=== PATIENT | male | born 1960 | race Caucasian/White ===

== ENCOUNTER 2016-05-07 10:22 | Inpatient (IN) | payer OTHER ==
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
--- NOTE | ~2016-05-07 | DS ---
Discharge Summary [facility] [address] [place]. [address] NAME: EMY SCOTT : 56 STATUS : ADM IN [facility]#: [id number] AGE: 56 ADM/REG DATE : 05/07/16 MR#: [id number] REPORT SERV DATE: 05/12/16 DICTATED BY: SLIME PUGH DATE: 05/12/16 REPORT STATUS : Draft TRANSCRIBED BY: MODL DATE: 05/12/16 ADMISSION DATE: 05/07/2016 DISCHARGE DATE: 05/12/2016 FINAL HOSPITAL DIAGNOSES: 1. Volume overload, anasarca, edema, felt secondary to probable liver disease secondary to history of EtOH. 2. Spontaneous bacterial peritonitis. 3. Diabetes. 4. History of hypertension. CONSULTATIONS: None. PROCEDURES: 1. CT scan of the abdomen and pelvis done on 05/07/2016 showing ascites, diffuse edema within subcutaneous and intraabdominal fat, slight splenomegaly, possible varices in the left abdomen, minimal nonobstructing areas of calcification within the kidneys without evidence of hydronephrosis, minimal partially nodule in the right lower lobe, minimal bibasilar dependent atelectasis. 2. Paracentesis done on 05/08/2016 with approximately 2200 mL removed. CURRENT PHYSICAL FINDINGS AND HPI: Please see dictated H and P by Dr. Gould. In brief, the patient is a 56-year-old male with above history, was told to discontinue his diuretic by his PCP, and presented with increasing dependent edema, abdominal girth, and abdominal pain. Vital signs at the time of admission, blood pressure was 154/79. His temperature was 98.1 and he has had no documented temperature here, heart rate was 94. LAB WORK: His initial BMP was unremarkable. With his diuretics, he has had some slight hypokalemia, which has been replaced. Magnesium has not been an issue, he has been approximately 2+. Even with his diuresis, his liver functions were slightly abnormal. He had a presenting bilirubin of 2.3 total, reached to a max of 5.1 on 05/09/2016, but repeat later that day was 3.1. AST, ALTs have been in the 60 and 40 range. Alkaline phosphatase averaging approximately 130. Lipase was normal. Troponin was normal. BMP was normal. A1c was 5.2. Hepatitis profile is currently pending. Peritoneal fluid noted a negative culture x3 days, however, his nucleated cell count was 1302 with 20% segments. White count was 9.9 on presentation, highest white count was 11.3 on 05/09/2016. He was not anemic. Hemoglobins were approximately 14 and 40, platelet counts were averaging approximately 150. INR was 1.8. The patient was initially admitted for volume overload edema and he was initially started on diuretic drip, Bumex at 1 mg an hour. Paracentesis was ordered and sent for the above studies. His home medications reviewed and restarted appropriately, he was placed on sliding scale insulin, and serial labs were followed. I took over his care on 05/09/2016. He was having abdominal pain and the results of his paracentesis were back, he was above 250 cut off, for concern of SBP. He was started on Rocephin at that time pending culture results. He had a 12 L fluid loss on the diuretic, so the drip was discontinued, and the following day, he was placed on p.o. diuretics initially at 60 b.i.d. titrating to q. day dose. He continued to lose fluid and symptoms were much improved as far as his Discharge Summary [address] [address] NAME: EMY SCOTT : 56 STATUS : ADM IN PAT#: [id number] AGE: 56 ADM/REG DATE : 05/07/16 MR#: [id number] REPORT SERV DATE: 05/12/16 DICTATED BY: SLIME PUGH DATE: 05/12/16 REPORT STATUS : Draft TRANSCRIBED BY: MOD DATE: 05/12/16 anasarca and abdominal pain. On discussion with Dr. Morin, he was agreeable to see the patient in outpatient followup, recommended continued outpatient treatment for SBP, both acute and prophylaxis, and this was explained to the patient. He was also started on Aldactone. A hepatitis panel was ordered, which is currently pending. He was reassessed after day 4 of his IV Rocephin and remained afebrile with no abdominal pain, continued good diuresis, acceptable electrolytes, and felt stable for discharge. DISPOSITION: As follows. He is discharged home. We will schedule an outpatient appointment with Dr. Morin. We wrote him the following prescriptions. Aldactone 100 one per day, Levaquin 750 one per day for fourteen days, and Cipro 500 three times per week. 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 We will also continue Lasix 40 one per day as he was at home; however, he will weigh daily and if he increases by several pounds, he will increase his Lasix dose to try to maintain later slowly decreasing weight. He will continue his Ambien 10, his Glucophage 500, his Ventolin inhaler, and his potassium 20. He was not restarted on his Cozaar here and he will continue to hold as his blood pressure seems improved with the diuresis. I have asked him to follow up with his PCP in seven to ten days to check his volume status and weight, his blood pressure off his Cozaar, follow up on his hepatitis panel, recheck his renal function and electrolytes, particularly his potassium since he will be on Aldactone plus potassium-losing diuretic and p.o. potassium replacement, but he is off his ARB. He has been given instructions to return to the hospital for recurrence of his abdominal pain, fever, or other symptoms of infection, he voices understanding. SAIDA/CLAU Slime Pugh M.D. / [id number] CC: Slime Pugh M.D.
[2016-05-07 09:05] LABS: BASOPHILS 1.1 %; BASOPHILS ABSOLUTE 0.11 10/3/uL (0.0-0.16); EOSINOPHILS 2.6 %; EOSINOPHILS ABSOLUTE 0.26 10/3/uL (0.0-0.53); HEMATOCRIT 40.4 % (40.0-51.0); HEMOGLOBIN 14.1 g/dL (13.6-17.8); IMMATURE GRANULOCYTES 0.6 %; IMMATURE GRANULOCYTES ABSOLUTE 0.06 10/3/uL (0.0-0.11); LYMPHOCYTES 10.5 %; LYMPHOCYTES ABSOLUTE 1.04 10/3/uL (0.67-4.30); MANUAL DIFF NO %; MEAN CORPUS HGB CONC 34.9 g/dL (32.0-36.0); MEAN CORPUSCULAR VOLUME 108.9 fL (80-100); MEAN PLATELET VOLUME 10.3 fL (9.2-13.0); MONOCYTES 23.8 %; MONOCYTES ABSOLUTE 2.35 10/3/uL (0.21-1.20); NEUTROPHILS 61.4 %; NEUTROPHILS ABSOLUTE 6.06 10/3/uL (2.02-8.40); PLATELET COUNT 149 10/3/uL (150-400); RBC DISTRIBUTION WIDTH 13.8 % (12.0-16.0); RED CELL COUNT 3.71 10/6/uL (4.7-6.1); WHITE BLOOD CELLS 9.9 10/3/uL (4.5-10.5)
[2016-05-07 09:12] LABS: INTERNATIONAL NORMAL RATI 1.8 UNITS (-)
[2016-05-07 09:13] LABS: PARTIAL THROMBO TIME 47.4 SEC (22.5-37.2)
[2016-05-07 09:22] LABS: ALKALINE PHOSPHATASE 127 U/L (45-117); BUN (BLOOD UREA NITROGEN) 4 MG/DL (6-23); CALCIUM, SERUM 7.7 MG/DL (8.5-10.4); CHEST PAIN PROFILE TAT 0 Hrs 21 Mins; CHLORIDE, SERUM 104 MMOL/L (96-112); CO2 (CARBON DIOXIDE) 29 MMOL/L (24-34); DIRECT BILIRUBIN 1.3 MG/DL (0.0-0.4); GFR AFRICAN AMERICAN 121 ML/MIN (>=60); GFR NON AFRICAN AMERICAN 104 ML/MIN (>=60); POTASSIUM, SERUM 4.2 MMOL/L (3.5-5.3); SGOT(AST) 61 U/L (5-40); SGPT(ALT) 41 U/L (5-65); SODIUM, SERUM 141 MMOL/L (135-148); TROPONIN I <0.02 NG/ML (<0.05)
[2016-05-07 09:24] LABS: ALBUMIN 2.2 G/DL (3.5-5.0); GLUCOSE, SERUM 176 MG/DL (60-99); TOTAL BILIRUBIN 2.3 MG/DL (0-1.2); TOTAL PROTEIN 6.6 G/DL (6.0-8.5)
[2016-05-07 09:25] LABS: BAND NEUTROPHILS 5 %; BASOPHILS 1 %; EOSINOPHILS 5 %; ER DIFF TAT 0 Hrs 24 Mins; LYMPHOCYTES 11 %; LYMPHOCYTES ABSOLUTE (CALC) 1.09 10/3/uL (0.67-4.30); METAMYELOCYTES 1 %; MONOCYTES 13 %; MONOCYTES ABSOLUTE (CALC) 1.29 10/3/uL (0.21-1.20); NEUTROPHILS ABSOLUTE (CALC) 6.83 10/3/uL (2.02-8.40); PLATELET ESTIMATE SLT DEC (ADEQUATE); RBC MORPHOLOGY NORM (NORMAL); SEGMENTED NEUTROPHIL (0) 64 %; TOTAL NUCLEATED CELLS 100
[2016-05-07] MEDS ORDERED: AMB10 PO (13:34)
[2016-05-07] MEDS ORDERED: VENTOLIN HFA INH (13:35)
[2016-05-07] MEDS ORDERED: GLUCPH PO (13:35)
[2016-05-07] MEDS ORDERED: COZ25 PO (13:35)
[2016-05-07] MEDS ORDERED: L40 PO (13:36)
[2016-05-07] MEDS ORDERED: KLOR-CON M2020 MEQ PO (13:36)
[2016-05-08 04:17] LABS: HEMATOCRIT 41.4 % (40.0-51.0); HEMOGLOBIN 14.6 g/dL (13.6-17.8); MANUAL DIFF YES %; MEAN CORPUS HGB CONC 35.3 g/dL (32.0-36.0); MEAN CORPUSCULAR HEMOGLOB 38.3 pg (26.0-34.0); MEAN CORPUSCULAR VOLUME 108.7 fL (80-100); MEAN PLATELET VOLUME 10.5 fL (9.2-13.0); PLATELET COUNT 152 10/3/uL (150-400); RBC DISTRIBUTION WIDTH 13.8 % (12.0-16.0); RED CELL COUNT 3.81 10/6/uL (4.7-6.1); WHITE BLOOD CELLS 10.7 10/3/uL (4.5-10.5)
[2016-05-08 04:18] LABS: INTERNATIONAL NORMAL RATI 1.8 UNITS (-); PROTIME (NOT ORD) 21.1 SEC (12.0-14.5)
[2016-05-08 04:26] LABS: A/G RATIO 0.5 (0.7-1.9); ALBUMIN 2.3 G/DL (3.5-5.0); ALKALINE PHOSPHATASE 127 U/L (45-117); BUN (BLOOD UREA NITROGEN) 6 MG/DL (6-23); CALCIUM, SERUM 7.7 MG/DL (8.5-10.4); CHLORIDE, SERUM 100 MMOL/L (96-112); CO2 (CARBON DIOXIDE) 31 MMOL/L (24-34); CREATININE 0.73 MG/DL (0.70-1.30); GFR AFRICAN AMERICAN 119 ML/MIN (>=60); GFR NON AFRICAN AMERICAN 102 ML/MIN (>=60); GLOBULIN 4.5 G/DL (2.5-4.1); POTASSIUM, SERUM 3.6 MMOL/L (3.5-5.3); SGOT(AST) 72 U/L (5-40); SGPT(ALT) 44 U/L (5-65); SODIUM, SERUM 141 MMOL/L (135-148); TOTAL PROTEIN 6.8 G/DL (6.0-8.5)
[2016-05-08 04:28] LABS: GLUCOSE, SERUM 115 MG/DL (60-99); TOTAL BILIRUBIN 4.3 MG/DL (0-1.2)
[2016-05-08 04:39] LABS: EOSINOPHILS 1 %; EOSINOPHILS ABSOLUTE (CALC) 0.11 10/3/uL (0.0-0.53); LYMPHOCYTES 10 %; LYMPHOCYTES ABSOLUTE (CALC) 1.07 10/3/uL (0.67-4.30); MONOCYTES 15 %; MONOCYTES ABSOLUTE (CALC) 1.61 10/3/uL (0.21-1.20); NEUTROPHILS ABSOLUTE (CALC) 7.92 10/3/uL (2.02-8.40); PLATELET ESTIMATE ADQ (ADEQUATE); RBC MORPHOLOGY ABN (NORMAL); SEGMENTED NEUTROPHIL (0) 74 %; TOTAL NUCLEATED CELLS 100
[2016-05-08 15:50] LABS: BF ALBUMIN 0.6 G/DL; LDH BODY FLUID (NOT ORD) 65 U/L; PROTEIN BODY FLUID 1.3 G/DL
[2016-05-08 16:21] LABS: BD FL LYMPH (NOT ORD) 10 %; BD FL SOURCE (NOT ORD) PARACENTESIS; BF BASO (NOT OF) 1 %; BF LARGE MONONUCLEAR 68 %; BODY FLUID EOS (NOT ORD) 0 %; BODY FLUID SEG (NOT ORD) 21 %
[2016-05-08 16:27] LABS: BF TOTAL CELL CT (NOT ORD 1302 /MM3; BODY FLUID RBC (NOT ORD) < 10 /MM3
[2016-05-09 06:23] LABS: BASOPHILS 0.4 %; BASOPHILS ABSOLUTE 0.05 10/3/uL (0.0-0.16); EOSINOPHILS 1.4 %; EOSINOPHILS ABSOLUTE 0.16 10/3/uL (0.0-0.53); HEMATOCRIT 40.4 % (40.0-51.0); HEMOGLOBIN 14.2 g/dL (13.6-17.8); IMMATURE GRANULOCYTES 0.3 %; IMMATURE GRANULOCYTES ABSOLUTE 0.03 10/3/uL (0.0-0.11); LYMPHOCYTES 12.6 %; LYMPHOCYTES ABSOLUTE 1.43 10/3/uL (0.67-4.30); MEAN CORPUS HGB CONC 35.1 g/dL (32.0-36.0); MEAN CORPUSCULAR HEMOGLOB 37.7 pg (26.0-34.0); MEAN CORPUSCULAR VOLUME 107.2 fL (80-100); MEAN PLATELET VOLUME 10.5 fL (9.2-13.0); MONOCYTES 19.9 %; MONOCYTES ABSOLUTE 2.26 10/3/uL (0.21-1.20); NEUTROPHILS 65.4 %; PLATELET COUNT 156 10/3/uL (150-400); RBC DISTRIBUTION WIDTH 13.7 % (12.0-16.0); RED CELL COUNT 3.77 10/6/uL (4.7-6.1); WHITE BLOOD CELLS 11.3 10/3/uL (4.5-10.5)
[2016-05-09 06:26] LABS: MANUAL DIFF NO %
[2016-05-09 06:41] LABS: A/G RATIO 0.5 (0.7-1.9); ALBUMIN 2.1 G/DL (3.5-5.0); ALKALINE PHOSPHATASE 118 U/L (45-117); BUN (BLOOD UREA NITROGEN) 9 MG/DL (6-23); CALCIUM, SERUM 7.3 MG/DL (8.5-10.4); CHLORIDE, SERUM 93 MMOL/L (96-112); CO2 (CARBON DIOXIDE) 35 MMOL/L (24-34); CREATININE 0.69 MG/DL (0.70-1.30); GFR AFRICAN AMERICAN 121 ML/MIN (>=60); GFR NON AFRICAN AMERICAN 105 ML/MIN (>=60); GLOBULIN 4.3 G/DL (2.5-4.1); GLUCOSE, SERUM 104 MG/DL (60-99); POTASSIUM, SERUM 2.7 MMOL/L (3.5-5.3); SGOT(AST) 61 U/L (5-40); SGPT(ALT) 41 U/L (5-65); SODIUM, SERUM 138 MMOL/L (135-148); TOTAL BILIRUBIN 5.1 MG/DL (0-1.2); TOTAL PROTEIN 6.4 G/DL (6.0-8.5)
[2016-05-09 18:55] LABS: A/G RATIO 0.5 (0.7-1.9); ALBUMIN 2.3 G/DL (3.5-5.0); ALKALINE PHOSPHATASE 122 U/L (45-117); BUN (BLOOD UREA NITROGEN) 9 MG/DL (6-23); CALCIUM, SERUM 7.4 MG/DL (8.5-10.4); CHLORIDE, SERUM 95 MMOL/L (96-112); CO2 (CARBON DIOXIDE) 35 MMOL/L (24-34); CREATININE 0.89 MG/DL (0.70-1.30); GFR AFRICAN AMERICAN 109 ML/MIN (>=60); GFR NON AFRICAN AMERICAN 94 ML/MIN (>=60); GLOBULIN 4.6 G/DL (2.5-4.1); POTASSIUM, SERUM 3.1 MMOL/L (3.5-5.3); SGOT(AST) 65 U/L (5-40); SGPT(ALT) 41 U/L (5-65); SODIUM, SERUM 137 MMOL/L (135-148); TOTAL PROTEIN 6.9 G/DL (6.0-8.5)
[2016-05-09 18:56] LABS: GLUCOSE, SERUM 184 MG/DL (60-99); TOTAL BILIRUBIN 3.1 MG/DL (0-1.2)
[2016-05-10 06:18] LABS: BUN (BLOOD UREA NITROGEN) 9 MG/DL (6-23); CHLORIDE, SERUM 97 MMOL/L (96-112); CREATININE 0.65 MG/DL (0.70-1.30); GFR AFRICAN AMERICAN 124 ML/MIN (>=60); GFR NON AFRICAN AMERICAN 107 ML/MIN (>=60); PHOSPHORUS, SERUM 2.5 MG/DL (2.5-4.5); POTASSIUM, SERUM 3.2 MMOL/L (3.5-5.3); SODIUM, SERUM 138 MMOL/L (135-148)
[2016-05-10 06:19] LABS: CO2 (CARBON DIOXIDE) 29 MMOL/L (24-34); GLUCOSE, SERUM 100 MG/DL (60-99)
[2016-05-11 06:06] LABS: CALCIUM IONIZED 4.29 MG/DL (3.80-4.80)
[2016-05-11 06:20] LABS: BUN (BLOOD UREA NITROGEN) 8 MG/DL (6-23); CALCIUM, SERUM 7.8 MG/DL (8.5-10.4); CHLORIDE, SERUM 102 MMOL/L (96-112); CO2 (CARBON DIOXIDE) 30 MMOL/L (24-34); CREATININE 0.67 MG/DL (0.70-1.30); GFR AFRICAN AMERICAN 123 ML/MIN (>=60); GFR NON AFRICAN AMERICAN 106 ML/MIN (>=60); POTASSIUM, SERUM 3.4 MMOL/L (3.5-5.3); SODIUM, SERUM 139 MMOL/L (135-148)
[2016-05-11 06:22] LABS: GLUCOSE, SERUM 132 MG/DL (60-99)
[2016-05-11 06:24] LABS: B NATRIURETIC PEPTIDE (BNP) 16.8 PG/ML (< 100.0)
[2016-05-12 08:32] LABS: BUN (BLOOD UREA NITROGEN) 9 MG/DL (6-23); CHLORIDE, SERUM 103 MMOL/L (96-112); CO2 (CARBON DIOXIDE) 29 MMOL/L (24-34); GFR AFRICAN AMERICAN 121 ML/MIN (>=60); GFR NON AFRICAN AMERICAN 104 ML/MIN (>=60); GLUCOSE, SERUM 110 MG/DL (60-99); POTASSIUM, SERUM 3.4 MMOL/L (3.5-5.3); SODIUM, SERUM 139 MMOL/L (135-148)
[2016-05-12 10:14] LABS: HEPATITIS B SURFACE ANTIGEN NON-REACTIVE (NON-REACT)
[2016-05-12 10:24] LABS: HEPATITIS B CORE AB IGM NON-REACTIVE (NON-REAC)
[2016-05-12 10:25] LABS: HEP A ANTIBODY IGM NON-REACTIVE (NON-REACT)
[2016-05-12] MEDS ORDERED: LEVAQUIN750 MG PO (12:27)
[2016-05-12] MEDS ORDERED: CIP5 PO (12:30)
[2016-05-12] MEDS ORDERED: SPIR100 PO (12:31)
[2016-05-12 13:19] LABS: HEPATITIS C ANTIBODY REACTIVE (NON-REACT)
[2016-07-12] MEDS ORDERED: L40 PO (16:37)
[2016-11-06] MEDS ORDERED: VENTOLIN HFA INH (12:04)
[2016-11-06] MEDS ORDERED: GENERLAC PO (12:04)
[2016-11-06] MEDS ORDERED: SPIR100 PO (12:05)
[2016-11-06] MEDS ORDERED: L80 PO (12:05)
[2016-11-06] MEDS ORDERED: L40 PO (12:05)
[2016-11-06] MEDS ORDERED: I20 PO (12:05)
[2016-11-06] MEDS ORDERED: AT25 PO (12:06)
[2016-11-06] MEDS ORDERED: LINZESS 145 M145 MCG PO (12:06)
[2016-11-06] MEDS ORDERED: [UNRECOGNIZED DRUG - CODE] PO (12:11)
== END 2016-05-12 13:13 | disposition home or self-care (01) | DRG 373 ==
LOC: ER 10:22 → 4SO 15:06
PROVIDERS: Internal Medicine; Nurse Practitioner; Nurse Practitioner Gerontology
PROC: 0W9G3ZX Drainage of Peritoneal Cavity, Percutaneous Approach, Diagnostic (ICD-10-PCS; principal; 2016-05-08)
DX: K65.2 Spontaneous bacterial peritonitis (principal); K70.31 Alcoholic cirrhosis of liver with ascites; I10 Essential (primary) hypertension; E11.9 Type 2 diabetes mellitus without complications; Z85.828 Personal history of other malignant neoplasm of skin; Z92.3 Personal history of irradiation; F17.210 Nicotine dependence, cigarettes, uncomplicated; Z79.84 Long term (current) use of oral hypoglycemic drugs; E87.6 Hypokalemia
CPT/HCPCS: 49083; 71010; 74176; 80048; 80053; 80074; 80076; 82042; 82330; 82962; 83036; 83615; 83690; 83735; 83880; 84100; 84132; 84157; 84484; 85025; 85610; 85730; 87070; 87205; 89051; 93005; 96374; 99285; A9270-GY; J1170; J2405

== ENCOUNTER → 2016-07-02 22:27 | Emergency (ER) | payer OTHER ==
[~2016-07-02 22:27] MED LIST: AMB10 PO; AT25 PO; CIP5 PO; CONSTULOSE PO; COZ25 PO; GENERLAC PO; GLUCPH PO; HABIT21 TOP; I20 PO; KDUR20 PO; KLOR-CON M2020 MEQ PO; L40 PO; L80 PO; LEVAQUIN750 MG PO; LINZESS 145 M145 MCG PO; PEP20 PO; SPIR100 PO; SPRYCEL100 MG PO; VENTOLIN HFA INH; [UNRECOGNIZED DRUG - CODE] PO
== END | disposition left against medical advice (07) ==
LOC: ER 22:27
DX: Z53.21 Procedure and treatment not carried out due to patient leaving prior to being seen by health care provider (principal)
CPT/HCPCS: 82962; 93005

== ENCOUNTER 2016-07-28 16:14 | Inpatient (IN) | payer OTHER ==
--- NOTE | ~2016-07-28 | DS ---
Discharge Summary [facility] [address] [place]. [address] NAME: EMY SCOTT : 56 STATUS : DIS IN PAT#: [id number] AGE: 56 ADM/REG DATE : 07/28/16 MR#: [id number] REPORT SERV DATE: 08/02/16 DICTATED BY: PAULO GONZALEZ DATE: 08/01/16 REPORT STATUS : Draft TRANSCRIBED BY: MODL DATE: 08/01/16 ADMISSION DATE: 07/28/2016 DISCHARGE DATE: 07/31/2016 DISCHARGE DIAGNOSES: 1. Hepatic encephalopathy. 2. 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 3. Diabetes type 2. 4. Hypertension. 5. Mild lactic elevation, resolved. 6. Tobacco use. DISCHARGE DISPOSITION: Home with family. Follow up with Dr. Morin in 2 weeks. Follow up PCP this week for followup pneumonia. PERTINENT LABS: Ammonia on arrival over 160 with high being over 180, at time of discharge 60. DISCHARGE MEDICATIONS: 1. Pepcid 20 mg one tab p.o. daily. 2. Lasix decreased to 40 mg one tab p.o. daily. 3. Lactulose 15 mL p.o. t.i.d. titrate to two to three bowel movements a day. 4. Nicotine topical patch daily. 5. Inderal 20 mg one tab p.o. b.i.d. 6. Spironolactone 50 mg one tab p.o. daily. 7. To reassess for rifaximin with Hepatology. 8. Atarax 25 mg one tab p.o. as needed for sleep home dose. 9. Ventolin 2 puffs inhalation daily. 10.KCl 10 mEq p.o. daily. The patient also to take daily labs, diabetic diet at home. Call PCP if greater than 3 pounds in a day or 5 pounds weight gain in a week. HOSPITAL COURSE: Please see H and P for complete details. HISTORY OF PRESENT ILLNESS: Briefly, Mr. Scott is a pleasant 56-year-old male with past medical history of alcohol and hep C component cirrhosis who presents after being at work and having feelings of mental slowing and mild confusion that has been slow but progressive. On arrival to emergency room, the patient was noted to have ammonia of 160 as high as 181 during this hospital stay. BNP was only 18.2 and hemoglobin A1c was 5.3. Brain without contrast was performed with no acute findings. CT abdomen and pelvis was also performed noted with cirrhosis edema but no ascites. Procalcitonin 0.07, free T4 and TSH within normal limits. Negative troponin enzymes. The patient was placed on lactulose and began to have continued bowel movements with subsequent decrease in ammonia. The patient had clinical improvement with mental status and within 24 hours was notably improved and by day of discharge, was feeling back to his baseline and felt safe and comfortable with discharge and was eager to return back to home. He understands plan for close followup. Discharge Summary [facility] [address] [facility] [place]. [address] NAME: EMY SCOTT : 56 STATUS : DIS IN PAT#: [id number] AGE: 56 ADM/REG DATE : 07/28/16 MR#: [id number] REPORT SERV DATE: 08/02/16 DICTATED BY: PAULO GONZALEZ DATE: 08/01/16 REPORT STATUS : Draft TRANSCRIBED BY: MODSonya DATE: 08/01/16 Education about disease process was reinforced as well as diabetic education. The patient was reported to be diabetic, has had almost 50 pounds weight loss with fluid loss with diuretics, however, was borderline. Systolic blood pressures in the low 100s so home dose of spironolactone and Lasix were decreased as patient was fairly euvolemic and due to bowel movements was being closely monitored with volume status. The patient felt comfortable and understood the purpose of bowel regimen and lactulose and medications and has good family support to monitor with him. All questions answered. Greater than 30 minutes spent with discharge planning, med reconciliation, and education. DICTATED BY: MD DANIEL Frost/CLAU Paulo Gonzalez MD / [id number] CC: Paulo Gonzalez MD
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
[2016-07-28 13:18] LABS: BASOPHILS 0.6 %; BASOPHILS ABSOLUTE 0.05 10/3/uL (0.0-0.16); EOSINOPHILS 1.8 %; EOSINOPHILS ABSOLUTE 0.15 10/3/uL (0.0-0.53); ER CBC TAT 0 Hrs 09 Mins; HEMATOCRIT 40.2 % (40.0-51.0); HEMOGLOBIN 14.6 g/dL (13.6-17.8); IMMATURE GRANULOCYTES 0.4 %; IMMATURE GRANULOCYTES ABSOLUTE 0.03 10/3/uL (0.0-0.11); LYMPHOCYTES 11.9 %; LYMPHOCYTES ABSOLUTE 1.02 10/3/uL (0.67-4.30); MANUAL DIFF NO %; MEAN CORPUS HGB CONC 36.3 g/dL (32.0-36.0); MEAN CORPUSCULAR HEMOGLOB 36.5 pg (26.0-34.0); MEAN CORPUSCULAR VOLUME 100.5 fL (80-100); MONOCYTES 16.7 %; MONOCYTES ABSOLUTE 1.43 10/3/uL (0.21-1.20); NEUTROPHILS 68.6 %; NEUTROPHILS ABSOLUTE 5.86 10/3/uL (2.02-8.40); PLATELET COUNT 149 10/3/uL (150-400); RBC DISTRIBUTION WIDTH 13.8 % (12.0-16.0); WHITE BLOOD CELLS 8.5 10/3/uL (4.5-10.5)
[2016-07-28 13:38] LABS: BUN (BLOOD UREA NITROGEN) 12 MG/DL (6-23); CHLORIDE, SERUM 100 MMOL/L (96-112); CO2 (CARBON DIOXIDE) 27 MMOL/L (24-34); CREATININE 1.16 MG/DL (0.70-1.30); GFR AFRICAN AMERICAN 80 ML/MIN (>=60); GFR NON AFRICAN AMERICAN 69 ML/MIN (>=60); POTASSIUM, SERUM 3.8 MMOL/L (3.5-5.3); SGOT(AST) 59 U/L (5-40); SGPT(ALT) 55 U/L (5-65); SODIUM, SERUM 134 MMOL/L (135-148); TOTAL PROTEIN 7.6 G/DL (6.0-8.5); TROPONIN I <0.02 NG/ML (<0.05)
[2016-07-28 13:39] LABS: A/G RATIO 0.7 (0.7-1.9); ALBUMIN 3.1 G/DL (3.5-5.0); ALKALINE PHOSPHATASE 101 U/L (45-117); CALCIUM, SERUM 9.1 MG/DL (8.5-10.4); GLOBULIN 4.5 G/DL (2.5-4.1); GLUCOSE, SERUM 144 MG/DL (60-99); TOTAL BILIRUBIN 4.6 MG/DL (0-1.2)
[2016-07-28 14:42] LABS: ASCORBIC ACID (UR NOT ORDER) NEG (NEG); BILIRUBIN, URINE NEGATIVE (NEG); ER URINALYSIS TAT 0 Hrs 08 Mins; KETONE, URINE NEGATIVE (NEG); LEUKOCYTE ESTERASE(NOT OR NEG (NEG); NITRITE (URINE) NEG (NEG); WBC (NOT ORDERED) (RFLEX) 1 (0-5)
[~2016-07-28 16:14] MED LIST changes: -AT25 PO; -CONSTULOSE PO; -GENERLAC PO; -HABIT21 TOP; -I20 PO; -KDUR20 PO; -L80 PO; -LINZESS 145 M145 MCG PO; -PEP20 PO; -SPRYCEL100 MG PO; -[UNRECOGNIZED DRUG - CODE] PO
[2016-07-28] MEDS ORDERED: SPRYCEL100 MG PO (16:40)
[2016-07-28] MEDS ORDERED: AT25 PO (16:40)
[2016-07-28] MEDS ORDERED: VENTOLIN HFA INH (16:40)
[2016-07-28] MEDS ORDERED: PEP20 PO (16:41)
[2016-07-28] MEDS ORDERED: L80 PO (16:41)
[2016-07-28] MEDS ORDERED: KDUR20 PO (16:41)
[2016-07-28] MEDS ORDERED: SPIR100 PO (16:44)
[2016-07-28 21:05] LABS: B NATRIURETIC PEPTIDE (BNP) 18.2 PG/ML (< 100.0)
[2016-07-28 21:09] LABS: FREE T4 1.37 NG/DL (0.76-1.46); TROPONIN I <0.02 NG/ML (<0.05)
[2016-07-28 22:07] LABS: GLYCOHEMOGLOBIN (HbA1c) 5.3 % (4.7-6.1)
[2016-07-28 22:13] LABS: PROCALCITONIN 0.07 ng/mL (<0.5)
[2016-07-29 04:46] LABS: BASOPHILS 1.1 %; BASOPHILS ABSOLUTE 0.09 10/3/uL (0.0-0.16); EOSINOPHILS 4.3 %; EOSINOPHILS ABSOLUTE 0.34 10/3/uL (0.0-0.53); HEMATOCRIT 35.9 % (40.0-51.0); HEMOGLOBIN 12.6 g/dL (13.6-17.8); IMMATURE GRANULOCYTES 0.4 %; IMMATURE GRANULOCYTES ABSOLUTE 0.03 10/3/uL (0.0-0.11); LYMPHOCYTES 23.2 %; LYMPHOCYTES ABSOLUTE 1.83 10/3/uL (0.67-4.30); MANUAL DIFF NO %; MEAN CORPUS HGB CONC 35.1 g/dL (32.0-36.0); MEAN CORPUSCULAR HEMOGLOB 35.4 pg (26.0-34.0); MEAN CORPUSCULAR VOLUME 100.8 fL (80-100); MEAN PLATELET VOLUME 11.4 fL (9.2-13.0); MONOCYTES 18.3 %; MONOCYTES ABSOLUTE 1.44 10/3/uL (0.21-1.20); NEUTROPHILS 52.7 %; NEUTROPHILS ABSOLUTE 4.16 10/3/uL (2.02-8.40); PLATELET COUNT 148 10/3/uL (150-400); RBC DISTRIBUTION WIDTH 14.1 % (12.0-16.0); RED CELL COUNT 3.56 10/6/uL (4.7-6.1); WHITE BLOOD CELLS 7.9 10/3/uL (4.5-10.5)
[2016-07-29 04:56] LABS: A/G RATIO 0.7 (0.7-1.9); ALBUMIN 2.5 G/DL (3.5-5.0); BUN (BLOOD UREA NITROGEN) 15 MG/DL (6-23); CALCIUM, SERUM 8.9 MG/DL (8.5-10.4); CHLORIDE, SERUM 105 MMOL/L (96-112); CO2 (CARBON DIOXIDE) 28 MMOL/L (24-34); CREATININE 0.95 MG/DL (0.70-1.30); GFR AFRICAN AMERICAN 102 ML/MIN (>=60); GFR NON AFRICAN AMERICAN 88 ML/MIN (>=60); GLOBULIN 3.8 G/DL (2.5-4.1); POTASSIUM, SERUM 3.4 MMOL/L (3.5-5.3); SGOT(AST) 42 U/L (5-40); SGPT(ALT) 39 U/L (5-65); SODIUM, SERUM 139 MMOL/L (135-148); TOTAL PROTEIN 6.3 G/DL (6.0-8.5); TROPONIN I <0.02 NG/ML (<0.05)
[2016-07-29 05:00] LABS: ALKALINE PHOSPHATASE 81 U/L (45-117); GLUCOSE, SERUM 92 MG/DL (60-99); TOTAL BILIRUBIN 3.7 MG/DL (0-1.2)
[2016-07-30 06:25] LABS: HEMATOCRIT 36.5 % (40.0-51.0); HEMOGLOBIN 12.9 g/dL (13.6-17.8); MEAN CORPUS HGB CONC 35.3 g/dL (32.0-36.0); MEAN CORPUSCULAR HEMOGLOB 35.9 pg (26.0-34.0); MEAN CORPUSCULAR VOLUME 101.7 fL (80-100); MEAN PLATELET VOLUME 11.4 fL (9.2-13.0); PLATELET COUNT 149 10/3/uL (150-400); RBC DISTRIBUTION WIDTH 14.3 % (12.0-16.0); RED CELL COUNT 3.59 10/6/uL (4.7-6.1)
[2016-07-30 06:27] LABS: MANUAL DIFF YES %
[2016-07-30 06:37] LABS: A/G RATIO 0.6 (0.7-1.9); ALBUMIN 2.4 G/DL (3.5-5.0); ALKALINE PHOSPHATASE 79 U/L (45-117); BUN (BLOOD UREA NITROGEN) 12 MG/DL (6-23); CALCIUM, SERUM 8.3 MG/DL (8.5-10.4); CHLORIDE, SERUM 106 MMOL/L (96-112); CO2 (CARBON DIOXIDE) 26 MMOL/L (24-34); CREATININE 0.97 MG/DL (0.70-1.30); GFR AFRICAN AMERICAN 99 ML/MIN (>=60); GFR NON AFRICAN AMERICAN 86 ML/MIN (>=60); GLUCOSE, SERUM 99 MG/DL (60-99); SGOT(AST) 41 U/L (5-40); SGPT(ALT) 38 U/L (5-65); SODIUM, SERUM 138 MMOL/L (135-148); TOTAL PROTEIN 6.4 G/DL (6.0-8.5)
[2016-07-30 06:38] LABS: TOTAL BILIRUBIN 3.1 MG/DL (0-1.2)
[2016-07-30 06:58] LABS: BASOPHILS 1 %; EOSINOPHILS 1 %; LYMPHOCYTES 22 %; MACROCYTES 1+ (5-10/OIF) (0-5/OIF); METAMYELOCYTES 1 %; MONOCYTES 11 %; PLATELET ESTIMATE SLT DEC (ADEQUATE); SEGMENTED NEUTROPHIL (0) 64 %; TOTAL NUCLEATED CELLS 100
[2016-07-31 04:35] LABS: BASOPHILS 1.2 %; BASOPHILS ABSOLUTE 0.13 10/3/uL (0.0-0.16); EOSINOPHILS ABSOLUTE 0.65 10/3/uL (0.0-0.53); HEMATOCRIT 37.6 % (40.0-51.0); HEMOGLOBIN 13.4 g/dL (13.6-17.8); IMMATURE GRANULOCYTES 0.3 %; IMMATURE GRANULOCYTES ABSOLUTE 0.03 10/3/uL (0.0-0.11); LYMPHOCYTES 18.5 %; MEAN CORPUS HGB CONC 35.6 g/dL (32.0-36.0); MEAN CORPUSCULAR HEMOGLOB 36.1 pg (26.0-34.0); MEAN CORPUSCULAR VOLUME 101.3 fL (80-100); MEAN PLATELET VOLUME 11.4 fL (9.2-13.0); MONOCYTES 16.8 %; MONOCYTES ABSOLUTE 1.82 10/3/uL (0.21-1.20); NEUTROPHILS 57.2 %; NEUTROPHILS ABSOLUTE 6.19 10/3/uL (2.02-8.40); PLATELET COUNT 150 10/3/uL (150-400); RBC DISTRIBUTION WIDTH 13.9 % (12.0-16.0); RED CELL COUNT 3.71 10/6/uL (4.7-6.1); WHITE BLOOD CELLS 10.8 10/3/uL (4.5-10.5)
[2016-07-31 04:51] LABS: MANUAL DIFF NO %
[2016-07-31 05:25] LABS: A/G RATIO 0.6 (0.7-1.9); ALBUMIN 2.4 G/DL (3.5-5.0); ALKALINE PHOSPHATASE 84 U/L (45-117); BUN (BLOOD UREA NITROGEN) 10 MG/DL (6-23); CALCIUM, SERUM 8.4 MG/DL (8.5-10.4); CHLORIDE, SERUM 106 MMOL/L (96-112); CO2 (CARBON DIOXIDE) 25 MMOL/L (24-34); CREATININE 0.79 MG/DL (0.70-1.30); GFR AFRICAN AMERICAN 115 ML/MIN (>=60); GFR NON AFRICAN AMERICAN 99 ML/MIN (>=60); GLOBULIN 3.8 G/DL (2.5-4.1); GLUCOSE, SERUM 90 MG/DL (60-99); POTASSIUM, SERUM 4.5 MMOL/L (3.5-5.3); SGOT(AST) 48 U/L (5-40); SGPT(ALT) 39 U/L (5-65); SODIUM, SERUM 137 MMOL/L (135-148); TOTAL BILIRUBIN 2.8 MG/DL (0-1.2); TOTAL PROTEIN 6.2 G/DL (6.0-8.5)
[2016-07-31 05:26] LABS: FOLATE 11.3 NG/ML (>5.2)
[2016-07-31] MEDS ORDERED: CONSTULOSE PO (15:33)
[2016-07-31] MEDS ORDERED: HABIT21 TOP (15:33)
[2016-07-31] MEDS ORDERED: I20 PO (15:34)
[2016-11-06] MEDS ORDERED: GENERLAC PO (12:04)
[2016-11-06] MEDS ORDERED: VENTOLIN HFA INH (12:04)
[2016-11-06] MEDS ORDERED: SPIR100 PO (12:05)
[2016-11-06] MEDS ORDERED: I20 PO (12:05)
[2016-11-06] MEDS ORDERED: L80 PO (12:05)
[2016-11-06] MEDS ORDERED: L40 PO (12:05)
[2016-11-06] MEDS ORDERED: LINZESS 145 M145 MCG PO (12:06)
[2016-11-06] MEDS ORDERED: AT25 PO (12:06)
[2016-11-06] MEDS ORDERED: [UNRECOGNIZED DRUG - CODE] PO (12:11)
== END 2016-07-31 16:27 | disposition home or self-care (01) | DRG 443 ==
LOC: ER 16:14 → 2SO 17:35
PROVIDERS: Emergency Medicine; Student in an Organized Health Care Education/Training Program
DX: K72.90 Hepatic failure, unspecified without coma (principal); E11.65 Type 2 diabetes mellitus with hyperglycemia; I10 Essential (primary) hypertension; F17.210 Nicotine dependence, cigarettes, uncomplicated; K70.30 Alcoholic cirrhosis of liver without ascites; B19.20 Unspecified viral hepatitis C without hepatic coma; F10.20 Alcohol dependence, uncomplicated; E66.9 Obesity, unspecified; L21.9 Seborrheic dermatitis, unspecified; R27.8 Other lack of coordination; Z98.890 Other specified postprocedural states
CPT/HCPCS: 70450; 71020; 74176; 80053; 81001; 82140; 82607; 82746; 82962; 83036; 83605; 83690; 83735; 83880; 84145; 84439; 84443; 84484; 85025; 87040; 93005; 99285; A9270-GY